=== PATIENT | male | born 1955 | race Caucasian/White ===

== ENCOUNTER → 2018-07-12 | Outpatient (CLI) | payer BC ==
--- NOTE | 2018-07-13 07:05 | US ---
EXAMINATION TYPE: US abdomen complete DATE OF EXAM: 07/12/2018 COMPARISON: NONE CLINICAL HISTORY: R19.7 Diarrhea. Diarrhea x 3 weeks EXAM MEASUREMENTS: Liver Length: 16.3 cm Gallbladder Wall: 0.2 cm CBD: 0.3 cm Spleen: 9.3 cm Right Kidney: 9.8 x 4.8 x 4.5 cm Left Kidney: 9.7 x 4.8 x 4.8 cm Pancreas: visualized portions wnl, tail obscured by overlying midline bowel gas Liver: wnl Gallbladder: wnl Evidence for sonographic Jurado's sign: no CBD: visualized portions wnl, limited by overlying bowel gas Spleen: wnl Right Kidney: wnl Left Kidney: wnl Upper IVC: wnl Abd Aorta: visualized portions wnl, proximal portion obscured by overlying midline bowel gas The liver is homogenous. The intrahepatic portion of the IVC and proximal abdominal aorta are within normal limits. There is no evidence of cholelithiasis. Common bile duct is unremarkable. The visu alized portions of the pancreas are homogenous. The spleen is unremarkable. Kidneys are symmetric a nd free of hydronephrosis. No renal lesions are seen. IMPRESSION: No distinct abnormality appreciated.
== END ==
LOC: RADUSMAIN 16:18
PROVIDERS: ATTEND Family Medicine
DX: R19.7 Diarrhea, unspecified (principal)
CPT/HCPCS: 76700

== ENCOUNTER 2019-09-18 01:35 | Emergency (ER) | payer BC ==
[2019-09-18] MEDS ORDERED: ALBUTEROL NEBULIZED 2.5 MG/3 ML INHALATION STA (01:56)
--- NOTE | 2019-09-18 01:56 | ED ---
SOB HPI - General Stated Complaint: Transfer From [place] Time Seen by Provider: 09/18/19 01:42 - History of Present Illness Initial Comments: This patient is 64-year-old man who presents here as a transfer from outside hospital to have computed tomography scan to rule out pulmonary embolism. The patient states he had gone to the hospital evaluated for shortness of breath and cough. He states that this that come on about 3 days ago and was getting progressively worse. The patient was found to have elevated d-dimer, and the patient was not able to have computed tomography scan at the other facility as the instrument was not functional. Patient denies fever or chills. No chest pain. No hemoptysis. No leg pain or swelling. MD Complaint: shortness of breath, cough Onset/Timin -: days(s) Consistency: constant Improves With: nothing Worsens With: nothing Associated Symptoms: denies other symptoms Treatments Prior to Arrival: none - Related Data Home Medications Medication Instructions Recorded Confirmed Bisoprolol Fumarate [Zebeta] 10 mg PO BID 11/07/15 07/08/16 Esomeprazole Magnesium [NexIUM] 20 mg PO DAILY 11/07/15 07/08/16 Vardenafil HCl [Levitra] 10 mg PO DAILY PRN 07/06/16 07/08/16 Previous Rx's Medication Instructions Recorded Cephalexin [Keflex] 500 mg PO Q8HR #15 cap 07/08/16 HYDROcodone/APAP 5-325MG [[place] 5] 1 - 2 each PO Q4-6H PRN #60 tab 07/08/16 Sennosides-Docusate Sodium 2 tab PO DAILY #30 tablet 07/08/16 [Senokot-S] Allergies Allergy/AdvReac Type Severity Reaction Status Date / Time No Known Allergies Allergy Verified 09/18/19 01:56 Review of Systems ROS Statement: Those systems with pertinent positive or pertinent negative responses have been documented in the HPI. ROS Other: All systems not noted in ROS Statement are negative. Constitutional: Denies: fever, chills, weakness Respiratory: Reports: as per HPI, cough, dyspnea. Denies: hemoptysis Cardiovascular: Denies: chest pain, palpitations, orthopnea, edema, syncope Gastrointestinal: Denies: abdominal pain, nausea, vomiting, melena, hematochezia Genitourinary: Denies: dysuria, hematuria Musculoskeletal: Denies: back pain Skin: Denies: rash Neurological: Denies: headache Past Medical History Past Medical History: GERD/Reflux, Hypertension History of Any Multi-Drug Resistant Organisms: None Reported Additional Past Surgical History / Comment(s): calf bone spur. colonoscopy Past Anesthesia/Blood Transfusion Reactions: No Reported Reaction Past Psychological History: No Psychological Hx Reported Smoking Status: Former smoker Past Alcohol Use History: Occasional Additional Past Alcohol Use History / Comment(s): quit smoking 1999-smoke 1 10/19 ppd for about 20 yrs Past Drug Use History: None Reported - Past Family History Mother Family Medical History: Cancer Father Family Medical History: Cancer General Exam General appearance: alert, in no apparent distress Head exam: Present: atraumatic, normocephalic Eye exam: Present: normal appearance. Absent: scleral icterus, conjunctival injection Neck exam: Present: normal inspection Respiratory exam: Present: wheezes. Absent: respiratory distress, rales, rhonchi, stridor, accessory muscle use, decreased breath sounds, prolonged expiratory Cardiovascular Exam: Present: regular rate, normal rhythm, normal heart sounds. Absent: systolic murmur, diastolic murmur, rubs, gallop GI/Abdominal exam: Present: soft. Absent: distended, tenderness, guarding, rebound Extremities exam: Present: normal inspection, normal capillary refill. Absent: pedal edema, calf tenderness Back exam: Present: normal inspection. Absent: CVA tenderness (R), CVA tenderness (L) Neurological exam: Present: alert Skin exam: Present: warm, dry, intact, normal color. Absent: rash Course Vital Signs 09/18/19 09/18/19 09/18/19 01:46 02:02 02:03 Temperature 98.4 F Pulse Rate 66 63 67 Respiratory 14 15 Rate Blood Pressure 170/94 173/89 O2 Sat by Pulse 96 93 L Oximetry 09/18/19 02:11 Temperature Pulse Rate 65 Respiratory Rate Blood Pressure O2 Sat by Pulse Oximetry Disposition Clinical Impression: Pneumonia Disposition: HOME SELF-CARE Condition: Good Instructions (If sedation given, give patient instructions): Pneumonia (ED) Is patient prescribed a controlled substance at d/c from ED?: No Referrals: Isela Waller NPC [Primary Care Provider] - 1-2 days
--- NOTE | 2019-09-18 02:38 | CT ---
EXAMINATION TYPE: CT chest angio for PE DATE OF EXAM: 09/18/2019 COMPARISON: None HISTORY: rule out pe CT DLP: 344.1 mGycm Automated exposure control for dose reduction was used. CONTRAST: CT Chest for pulmonary embolism performed with with IV Contrast, patient injected with 60mL mL of Iso lila 370. FINDINGS: There are 3-D post processed images. There is some patchy groundglass interstitial infiltrate and atelectasis right lower lobe. There is n o evidence of a pulmonary mass. There is no mediastinal adenopathy. There are no hilar masses. Heart size is normal. There is no pericardial effusion. Thoracic aorta is intact. There is no aneurysm or dissection. The ascending aorta measures 3.5 cm. There is normal contrast opacification of the pulmonary arteries. There are no filling defects. Uppe r abdominal soft tissues are intact. There is small hiatal hernia. The bony thorax is intact. IMPRESSION: No evidence of pulmonary embolism. Right lower lobe interstitial pneumonia.
[2019-09-18 03:44] VITALS: BP 158/90; PULSE 82; RESP 17; TEMP 97.9
== END 2019-09-18 03:42 | disposition home or self-care (01) ==
LOC: EC 01:35
DX: J18.1 Lobar pneumonia, unspecified organism (principal); K21.9 Gastro-esophageal reflux disease without esophagitis; I10 Essential (primary) hypertension; Z79.899 Other long term (current) drug therapy; Z87.891 Personal history of nicotine dependence
CPT/HCPCS: 94640; 71275; 99285; 96365; J0696; Q9967

== ENCOUNTER → 2023-12-13 | Outpatient (CLI) | payer MEDICARE ==
--- NOTE | 2023-12-13 15:20 | US ---
EXAMINATION TYPE: US venous doppler duplex LE RT DATE OF EXAM: 12/13/2023 3:11 PM COMPARISON: NONE CLINICAL INDICATION: Male, 68 years old with history of M25.561 PAIN IN LEG S83.411A STRAIN OF KNEE; Right knee injury yesterday SIDE PERFORMED: Right TECHNIQUE: The lower extremity deep venous system is examined utilizing real time linear array sonog celine with graded compression, doppler sonography and color-flow sonography. VESSELS IMAGED: Common Femoral Vein Deep Femoral Vein Greater Saphenous Vein * Femoral Vein Popliteal Vein Small Saphenous Vein * Proximal Calf Veins (* superficial vessels) Right Leg: Negative for DVT Attempted to call Dr's office with results- no answer IMPRESSION: 1. Right lower extremity ultrasound negative for deep venous thrombosis.
== END | disposition home or self-care (01) ==
LOC: RADUSWWP 14:52
PROVIDERS: ATTEND Orthopaedic Surgery
DX: I80.9 Phlebitis and thrombophlebitis of unspecified site (principal); S83.411A Sprain of medial collateral ligament of right knee, initial encounter; M54.50 Low back pain, unspecified; X58.XXXA Exposure to other specified factors, initial encounter